=== PATIENT | male | born 1955 | race Caucasian/White ===

== ENCOUNTER 2018-11-20 11:26 | Inpatient (IN) | payer BC ==
[2018-11-20] MEDS ORDERED: Sodium Chloride 0.9% 10 ML Syringe FLUSH PRN ×2 (11:32→15:43)
[2018-11-20] MEDS ORDERED: Diltiazem 25 MG/5 ML SDV IVPUSH ONE (11:43)
[2018-11-20] MEDS ORDERED: Sodium Chloride 0.9% 1,000 ML IV SCH (11:45)
[2018-11-20] MEDS ORDERED: Diltiazem 125 MG in Sodium Chloride 0.9% 100 ML IV SCH (11:45)
--- NOTE | 2018-11-20 12:08 | EDM.PDOC ---
ED HPI GENERAL MEDICAL PROBLEM - General Chief Complaint: Cardiovascular Problem Stated Complaint: A FIB Time Seen by Provider: 11/20/18 11:30 Source of Information: Reports: Patient History Limitations: Reports: No Limitations - History of Present Illness INITIAL COMMENTS - FREE TEXT/NARRATIVE: Alert pleasant 63-year-old gentleman presented to the clinic earlier today fasting for medical evaluation. During the evaluation at clinic he was found to be in A. fib with RVR heart rate 120s to 180s. Blood pressure was 84/52. Patient was complaining of headache, lightheadedness and significant shortness of breath which was worse with activities. Patient was sent over to the clinic due to HR and Blood Pressure concerns. Patient's symptoms started on Friday but he continued work 2 days this week with some difficulty. 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 Patient reports he is on lisinopril, spironolactone, Coreg and digoxin for blood pressure, previous myocardial infarction and heart rate control. Patient had a myocardial infarction in 2008 had a defibrillator placed in 2009. Patient does not eat this morning due to fasting for laboratory studies today. Patient states symptoms do not feel like his previous heart attack. Patient has history A. fib once before his defibrillator thought it was ventricular tachycardia and he was shocked out of the A. fib rhythm. Patient has not been evaluated at any clinic or ER due to A. fib in the past. Patient states he does feel shortness of breath which is worse with activities, increased heart rate, generally lightheaded without spinning or dizziness, he denies fall. He does have a mild headache, he denies any pain or burning with urination, he denies any diarrhea or constipation. He had been in a normal state of health last weekend. Patient admits to drinking 1 Lite of Vodka daily for a number of years. Onset: Gradual - Related Data Allergies Allergy/AdvReac Type Severity Reaction Status Date / Time No Known Allergies Allergy Verified 11/20/18 12:09 Home Meds: Home Meds Aspirin [Halfprin] 81 mg PO DAILY 11/20/18 [History] Carvedilol [Coreg] 25 mg PO DAILY 11/20/18 [History] Digoxin 125 mcg PO DAILY 11/20/18 [History] Eszopiclone [Lunesta] 3 mg PO DAILY 11/20/18 [History] Glimepiride 4 mg PO DAILY 11/20/18 [History] Lisinopril 10 mg PO DAILY 11/20/18 [History] Multivitamin with Minerals [Multiple Vitamin] 1 tab PO DAILY 11/20/18 [History] Pravastatin Sodium 10 mg PO DAILY 11/20/18 [History] Spironolactone [Aldactone] 25 mg PO DAILY 11/20/18 [History] Past Medical History Cardiovascular History: Reports: Automatic Implantable Cardioverter Defibrillators, Cardiomyopathy, High Cholesterol, Hypertension, IA, Other (See Below) Other Cardiovascular History: Endocrine/Metabolic History: Reports: Diabetes, Type II Social & Family History - Tobacco Use Smoking Status *Q: Former Smoker Used Tobacco, but Quit: Yes Month/Year Tobacco Last Used: 1987 - Caffeine Use Caffeine Use: Reports: Coffee - Alcohol Use Days Per Week of Alcohol Use: 7 Number of Drinks Per Day: 1 Total Drinks Per Week: 7 - Recreational Drug Use Recreational Drug Use: No ED ROS GENERAL - Review of Systems Review Of Systems: See Below Constitutional: Reports: Malaise, Weakness, Fatigue, Diaphoresis, Decreased Appetite. Denies: Fever, Chills, Weight Gain HEENT: Reports: No Symptoms. Denies: Ear Pain, Hearing Loss, Throat Pain, Throat Swelling Respiratory: Reports: Shortness of Breath, Wheezing, Pleuritic Chest Pain. Denies: Cough, Hemoptysis Cardiovascular: Reports: Blood Pressure Problem, Dyspnea on Exertion, Lightheadedness, Palpitations. Denies: Chest Pain, Edema, Syncope Endocrine: Reports: Fatigue GI/Abdominal: Reports: Decreased Appetite, Nausea. Denies: Abdominal Pain, Black Stool, Bloody Stool, Vomiting : Denies: Dysuria, Flank Pain, Frequency, Hematuria Musculoskeletal: Reports: No Symptoms Skin: Reports: No Symptoms Neurological: Reports: No Symptoms Psychiatric: Reports: No Symptoms (additional), Anxiety (drinks alcohol daily ) Hematologic/Lymphatic: Reports: No Symptoms Immunologic: Reports: No Symptoms ED EXAM, GENERAL - Physical Exam Exam: See Below Exam Limited By: No Limitations General Appearance: WD/WN, Anxious, Mild Distress Eye Exam: Bilateral Eye: EOMI, PERRL Ears: Normal External Exam, Normal Canal, Hearing Grossly Normal, Normal TMs Ear Exam: Bilateral Ear: Auricle Normal, Canal Normal, TM normal Nose: Normal Inspection, Normal Mucosa, No Blood Throat/Mouth: Normal Inspection, Normal Lips, Normal Teeth, Normal Gums, Normal Oropharynx, Normal Voice, No Airway Compromise Head: Normocephalic Neck: Normal Inspection, Supple, Non-Tender, Full Range of Motion Respiratory/Chest: Lungs Clear, Normal Breath Sounds, No Accessory Muscle Use, Chest Non-Tender. No: Crackles, Rales, Rhonchi, Wheezing, Stridor Cardiovascular: Normal Peripheral Pulses, No Edema, No Murmur, Irregularly Irregular GI/Abdominal: Normal Bowel Sounds, Soft, Non-Tender, No Organomegaly, No Distention, No Abnormal Bruit, No Mass (Male) Exam: Deferred Rectal (Males) Exam: Deferred Back Exam: Normal Inspection, Full Range of Motion, NT Extremities: Normal Inspection, Normal Range of Motion, Non-Tender, No Pedal Edema, Normal Capillary Refill. No: Pedal Edema Neurological: Alert, Oriented, CN II-XII Intact, Normal Cognition, Normal Gait, Normal Reflexes, No Motor/Sensory Deficits Psychiatric: Normal Affect, Normal Mood, Anxious Skin Exam: Warm, Dry, Intact, Normal Color, No Rash Lymphatic: No Adenopathy EKG INTERPRETATION EKG Date: 11/20/18 Time: 10:10 (Copy from Clinic) Rhythm: A-Fib Rate (Beats/Min): 146 P-Wave: Variable QRS: RBBB ST-T: Other QT: Prolonged Comparison: NA - No Prior EKG Course - Vital Signs Text/Narrative:: Initial VS in clinic HR 146 and BP 84/52. Patient is alert and does not appera in acute distress, headache, lightheaded and Shortness of Braeth worse with exertion noted. Medication list reviewed. Patient is on Digoxin for reat control per patient. No metoprolol or Cardizem. IV establish, lab studies, Cardizem bolus 20mg and Cardizem drip initial HR improved to 90s then 70s with persistent A fib. Patient admits to drinking 1 liter of Vodka per day. Alcohol blood level and Ativan ordered fo prevention of withdrawal symptoms. I spoke with Hospitalist regarding admission for Cardiac Echo, medication rate control vs cardioversion. Anticoagulant may need to be initiated and discuss daily alcohol use. Last Recorded V/S: Last Vital Signs Temp 35.8 C 11/20/18 11:39 Pulse 79 11/20/18 14:18 Resp 16 11/20/18 14:18 BP 132/84 11/20/18 13:26 Pulse Ox 97 11/20/18 14:18 - Orders/Labs/Meds Orders: Active Orders 24 hr Category Date Time Status Cardiac Monitoring [RC] .As Directed Care 11/20/18 11:33 Active Peripheral IV Care [RC] . DIRECTED Care 11/20/18 11:33 Active Diltiazem 125 mg Med 11/20/18 11:45 Active Sodium Chloride 0.9% [Normal Saline] 100 ml IV TITRATE Sodium Chloride 0.9% [Normal Saline] 1,000 ml Med 11/20/18 11:45 Active IV ASDIRECTED Sodium Chloride 0.9% [Saline Flush] Med 11/20/18 11:32 Active 10 ml FLUSH ASDIRECTED PRN Peripheral IV Insertion Adult [OM.PC] Urgent Oth 11/20/18 11:33 Ordered Medication Orders Diltiazem HCl 125 mg/ Sodium (Chloride) 125 mls @ 5 mls/hr IV TITRATE SAM; Protocol Last Admin: 11/20/18 12:20 Dose: 5 mg/hr, 5 mls/hr Sodium Chloride (Normal Saline) 1,000 mls @ 500 mls/hr IV ASDIRECTED SAM Last Admin: 11/20/18 11:55 Dose: 500 mls/hr Sodium Chloride (Saline Flush) 10 ml FLUSH ASDIRECTED PRN PRN Reason: Keep Vein Open Last Admin: 11/20/18 12:49 Dose: 10 ml Labs: Laboratory Tests 11/20/18 11/20/18 11/20/18 Range/Units 11:40 11:40 11:40 WBC 9.3 (4.5-11.0) K/uL RBC 4.42 (4.30-5.90) M/uL Hgb 14.9 (12.0-15.0) g/dL Hct 43.4 (40.0-54.0) % MCV 98 (80-98) fL MCH 34 H (27-31) pg MCHC 34 (32-36) % Plt Count 137 L (150-400) K/uL Neut % (Auto) 68 H (36-66) % Lymph % (Auto) 20 L (24-44) % [place] % (Auto) 9 H (2-6) % Eos % (Auto) 3 (2-4) % Baso % (Auto) 1 (0-1) % PT (9.5-12.0) sec INR (0.80-1.20) Sodium 139 L (140-148) mmol/L Potassium 6.0 H (3.6-5.2) mmol/L Chloride 103 (100-108) mmol/L Carbon Dioxide 28 (21-32) mmol/L Anion Gap 14.0 (5.0-14.0) mmol/L BUN 29 H (7-18) mg/dL Creatinine 1.4 H (0.8-1.3) mg/dL Est Cr Clr Drug Dosing 59.28 mL/min Estimated GFR (MDRD) 51 L (>60) Glucose 180 H (74-106) mg/dL Calcium 9.3 (8.5-10.1) mg/dL Total Bilirubin 0.9 (0.2-1.0) mg/dL AST 26 (15-37) U/L ALT 34 (12-78) U/L Alkaline Phosphatase 61 (46-116) U/L Troponin I 0.049 (0.000-0.056) ng/mL NT-Pro-B Natriuret Pep 5938 H (5-125) pg/mL Total Protein 7.0 (6.4-8.2) g/dL Albumin 3.6 (3.4-5.0) g/dL Globulin 3.4 (2.3-3.5) g/dL Albumin/Globulin Ratio 1.1 L (1.2-2.2) Digoxin (0.90-2.00) ng/mL Ethyl Alcohol mg/dL 11/20/18 11/20/18 11/20/18 Range/Units 11:40 11:40 12:34 WBC (4.5-11.0) K/uL RBC (4.30-5.90) M/uL Hgb (12.0-15.0) g/dL Hct (40.0-54.0) % MCV (80-98) fL MCH (27-31) pg MCHC (32-36) % Plt Count (150-400) K/uL Neut % (Auto) (36-66) % Lymph % (Auto) (24-44) % [place] % (Auto) (2-6) % Eos % (Auto) (2-4) % Baso % (Auto) (0-1) % PT 11.0 (9.5-12.0) sec INR 1.02 (0.80-1.20) Sodium (140-148) mmol/L Potassium (3.6-5.2) mmol/L Chloride (100-108) mmol/L Carbon Dioxide (21-32) mmol/L Anion Gap (5.0-14.0) mmol/L BUN (7-18) mg/dL Creatinine (0.8-1.3) mg/dL Est Cr Clr Drug Dosing mL/min Estimated GFR (MDRD) (>60) Glucose (74-106) mg/dL Calcium (8.5-10.1) mg/dL Total Bilirubin (0.2-1.0) mg/dL AST (15-37) U/L ALT (12-78) U/L Alkaline Phosphatase (46-116) U/L Troponin I (0.000-0.056) ng/mL NT-Pro-B Natriuret Pep (5-125) pg/mL Total Protein (6.4-8.2) g/dL Albumin (3.4-5.0) g/dL Globulin (2.3-3.5) g/dL Albumin/Globulin Ratio (1.2-2.2) Digoxin 0.70 L (0.90-2.00) ng/mL Ethyl Alcohol < 3 mg/dL Meds: Medications Generic Name Dose Route Start Last Admin Trade Name Freq PRN Reason Stop Dose Admin Diltiazem HCl 125 mg/ Sodium 125 mls @ 5 mls/hr 11/20/18 11:45 11/20/18 12:20 Chloride IV 5 mg/hr TITRATE SAM 5 mls/hr Administration Protocol 5 MG/HR Sodium Chloride 1,000 mls @ 500 mls/hr 11/20/18 11:45 11/20/18 11:55 Normal Saline IV 500 mls/hr ASDIRECTED SAM Administration Sodium Chloride 10 ml 11/20/18 11:32 11/20/18 12:49 Saline Flush FLUSH 10 ml ASDIRECTED PRN Administration Keep Vein Open Discontinued Medications Generic Name Dose Route Start Last Admin Trade Name Freq PRN Reason Stop Dose Admin Diltiazem HCl 20 mg 11/20/18 11:43 07/12/19 11:56 Diltiazem IVPUSH 11/20/18 11:44 20 mg ONETIME ONE Administration - Re-Assessments/Exams Free Text/Narrative Re-Assessment/Exam: Initial VS in clinic HR 146 and BP 84/52. Patient is alert and does not appera in acute distress, headache, lightheaded and Shortness of Braeth worse with exertion noted. Medication list reviewed. Patient is on Digoxin for reat control per patient. No metoprolol or Cardizem. IV establish, lab studies, Cardizem bolus 20mg and Cardizem drip initial HR improved to 90s then 70s with persistent A fib. Patient admits to drinking 1 liter of Vodka per day. Alcohol blood level and Ativan ordered fo prevention of withdrawal symptoms. I spoke with Hospitalist regarding admission for Cardiac Echo, medication rate control vs cardioversion. Anticoagulant may need to be initiated and discuss daily alcohol use. 11/20/18 12:25 Free Text/Narrative Re-Assessment/Exam: Critical care time 45 minutes while patient was unstable and received Cardizem bolus and drip to decreased HR and Improve BP. 11/20/18 12:45 Departure - Departure Time of Disposition: 14:26 Disposition: Admitted As Inpatient 66 Condition: Fair Clinical Impression: Atrial fibrillation with RVR, HTN (hypertension), Hypotension, Alcohol dependence, daily use Referrals: PCP,None [Primary Care Provider] - Forms: ED Department Discharge - Problem List & Annotations (1) Atrial fibrillation with RVR SNOMED Code(s): 273864065831040 Code(s): I48.91 - UNSPECIFIED ATRIAL FIBRILLATION Status: Acute Current Visit: Yes Annotation/Comment:: Hypotension with initial HR 146, BP improved with rate control (2) HTN (hypertension) SNOMED Code(s): 69518106 Code(s): I10 - ESSENTIAL (PRIMARY) HYPERTENSION Status: Acute Current Visit: Yes Qualifiers: Hypertension type: essential hypertension Qualified Code(s): I10 - Essential (primary) hypertension (3) Hypotension SNOMED Code(s): 00605424 Code(s): I95.9 - HYPOTENSION, UNSPECIFIED Status: Acute Current Visit: Yes (4) Elevated cholesterol SNOMED Code(s): 68266086 Code(s): E78.00 - PURE HYPERCHOLESTEROLEMIA, UNSPECIFIED Status: Acute Priority: Medium Current Visit: Yes (5) Diabetes SNOMED Code(s): 32115445 Code(s): E11.9 - TYPE 2 DIABETES MELLITUS WITHOUT COMPLICATIONS Status: Acute Priority: Medium Current Visit: Yes Qualifiers: Diabetes mellitus type: type 2 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 DIRECTED Peripheral IV Insertion Adult [OM.PC] Urgent 11/20/18 11:45 Diltiazem 125 mg Sodium Chloride 0.9% [Normal Saline] 100 ml IV TITRATE Sodium Chloride 0.9% [Normal Saline] 1,000 ml IV ASDIRECTED - Assessment/Plan Last 24 Hours: My Active Orders 11/20/18 11:32 Sodium Chloride 0.9% [Saline Flush] 10 ml FLUSH ASDIRECTED PRN 11/20/18 11:33 Cardiac Monitoring [RC] .As Directed Peripheral IV Care [RC] . DIRECTED Peripheral IV Insertion Adult [OM.PC] Urgent 11/20/18 11:45 Diltiazem 125 mg Sodium Chloride 0.9% [Normal Saline] 100 ml IV TITRATE Sodium Chloride 0.9% [Normal Saline] 1,000 ml IV ASDIRECTED
--- NOTE | 2018-11-20 14:41 | PCM.HP ---
H&P History of Present Illness - General Date of Service: 11/20/18 Admit Problem/Dx: Admission Diagnosis/Problem Admission Diagnosis/Problem Atrial fibrillation Source of Information: Patient, Family, Provider History Limitations: Reports: No Limitations - History of Present Illness Initial Comments - Free Text/Narative: Mr. Mccann is a 63-year-old gentleman who was admitted through the emergency department with weakness and lightheadedness secondary to atrial fibrillation with rapid ventricular response. Symptoms began approximately 4 days ago and during that period of time he is noted persistent weakness and lightheadedness. He is had one previous documented episode of atrial fibrillation which was transient and converted spontaneously. He does have a known history of congestive heart failure as well as coronary artery disease and is status post placement of a defibrillator. He denies any current symptoms of chest pain or pressure or significant shortness of breath. Evaluation in the emergency department has included cardiac monitoring as well as an EKG that showed evidence of atrial fibrillation with rapid ventricular response. He was given a bolus dose of diltiazem and started on a continuous infusion of diltiazem with good result and heart rate currently in the 70s, does remain in atrial fibrillation. - Related Data Allergies/Adverse Reactions: Allergies Allergy/AdvReac Type Severity Reaction Status Date / Time No Known Allergies Allergy Verified 11/20/18 12:09 Home Medications: Home Meds Aspirin [Halfprin] 81 mg PO DAILY 11/20/18 [History] Carvedilol [Coreg] 25 mg PO DAILY 11/20/18 [History] Digoxin 125 mcg PO DAILY 11/20/18 [History] Eszopiclone [Lunesta] 3 mg PO DAILY 11/20/18 [History] Glimepiride 4 mg PO DAILY 11/20/18 [History] Lisinopril 10 mg PO DAILY 11/20/18 [History] Multivitamin with Minerals [Multiple Vitamin] 1 tab PO DAILY 11/20/18 [History] Pravastatin Sodium 10 mg PO DAILY 11/20/18 [History] Spironolactone [Aldactone] 25 mg PO DAILY 11/20/18 [History] Past Medical History HEENT History: Reports: Impaired Vision Cardiovascular History: Reports: Automatic Implantable Cardioverter Defibrillators, Cardiomyopathy, High Cholesterol, Hypertension, GA, Other (See Below) Other Cardiovascular History: Musculoskeletal History: Reports: Arthritis, Gout Neurological History: Reports: Concussion, TIA Psychiatric History: Reports: Addiction, Anxiety Endocrine/Metabolic History: Reports: Diabetes, Type II Hematologic History: Reports: Blood Transfusion(s) - Past Surgical History Head Surgeries/Procedures: Reports: None HEENT Surgical History: Reports: Laser Surgery Cardiovascular Surgical History: Reports: Coronary Artery Bypass, Coronary Artery Stent Endocrine Surgical History: Reports: None Neurological Surgical History: Reports: None Musculoskeletal Surgical History: Reports: Other (See Below) Other Musculoskeletal Surgeries/Procedures:: finger Dermatological Surgical History: Reports: None Social & Family History - Tobacco Use Smoking Status *Q: Former Smoker Used Tobacco, but Quit: Yes Month/Year Tobacco Last Used: 1987 - Caffeine Use Caffeine Use: Reports: Coffee - Alcohol Use Days Per Week of Alcohol Use: 7 Number of Drinks Per Day: 1 Total Drinks Per Week: 7 - Recreational Drug Use Recreational Drug Use: No H&P Review of Systems - Review of Systems: Review Of Systems: See Below General: Reports: Malaise, Weakness HEENT: Reports: No Symptoms Pulmonary: Reports: No Symptoms Cardiovascular: Reports: Lightheadedness. Denies: Chest Pain, Palpitations, Dyspnea on Exertion, Orthopnea, PND, Edema Gastrointestinal: Reports: No Symptoms Genitourinary: Reports: No Symptoms Musculoskeletal: Reports: No Symptoms Skin: Reports: No Symptoms Psychiatric: Reports: No Symptoms Neurological: Reports: No Symptoms Hematologic/Lymphatic: Reports: No Symptoms Immunologic: Reports: No Symptoms Exam - Exam Exam: See Below - Vital Signs Vital Signs: Last Vital Signs Temp 96.4 F 11/20/18 11:39 Pulse 79 11/20/18 14:18 Resp 16 11/20/18 14:18 BP 132/84 11/20/18 13:26 Pulse Ox 97 11/20/18 14:18 Weight: 251 lb 5.231 oz - Exam General: Alert, Oriented, Cooperative, Mild Distress HEENT: Conjunctiva Clear, Hearing Intact, Mucosa Moist & [place], Normal Nasal Septum, Posterior Pharynx Clear, Pupils Equal Neck: Supple, Trachea Midline, +2 Carotid Pulse wo Bruit Lungs: Clear to Auscultation, Normal Respiratory Effort Cardiovascular: Regular Rate, Normal S1, Normal S2, Irregular Rhythm, Systolic Murmur. No: Diastolic Murmur GI/Abdominal Exam: Soft, Non-Tender, No Organomegaly, No Distention Back Exam: Normal Inspection, Full Range of Motion Extremities: Non-Tender, No Pedal Edema Skin: Warm, Dry, Intact Neurological: Cranial Nerves Intact, Strength Equal Bilateral, Normal Speech, Normal Tone, Sensation Intact. No: Focal Deficit Neuro Extensive - Mental Status: Alert, Oriented x3, Normal Mood/Affect, Normal Cognition, Memory Intact - Patient Data Lab Results Last 24 hrs: Laboratory Results - last 24 hr 11/20/18 11/20/18 11/20/18 Range/Units 11:40 11:40 11:40 WBC 9.3 (4.5-11.0) K/uL RBC 4.42 (4.30-5.90) M/uL Hgb 14.9 (12.0-15.0) g/dL Hct 43.4 (40.0-54.0) % MCV 98 (80-98) fL MCH 34 H (27-31) pg MCHC 34 (32-36) % Plt Count 137 L (150-400) K/uL Neut % (Auto) 68 H (36-66) % Lymph % (Auto) 20 L (24-44) % [place] % (Auto) 9 H (2-6) % Eos % (Auto) 3 (2-4) % Baso % (Auto) 1 (0-1) % PT (9.5-12.0) sec INR (0.80-1.20) Sodium 139 L (140-148) mmol/L Potassium 6.0 H (3.6-5.2) mmol/L Chloride 103 (100-108) mmol/L Carbon Dioxide 28 (21-32) mmol/L Anion Gap 14.0 (5.0-14.0) mmol/L BUN 29 H (7-18) mg/dL Creatinine 1.4 H (0.8-1.3) mg/dL Est Cr Clr Drug Dosing 59.28 mL/min Estimated GFR (MDRD) 51 L (>60) Glucose 180 H (74-106) mg/dL Calcium 9.3 (8.5-10.1) mg/dL Total Bilirubin 0.9 (0.2-1.0) mg/dL AST 26 (15-37) U/L ALT 34 (12-78) U/L Alkaline Phosphatase 61 (46-116) U/L Troponin I 0.049 (0.000-0.056) ng/mL NT-Pro-B Natriuret Pep 5938 H (5-125) pg/mL Total Protein 7.0 (6.4-8.2) g/dL Albumin 3.6 (3.4-5.0) g/dL Globulin 3.4 (2.3-3.5) g/dL Albumin/Globulin Ratio 1.1 L (1.2-2.2) Digoxin (0.90-2.00) ng/mL Ethyl Alcohol mg/dL 11/20/18 11/20/18 11/20/18 Range/Units 11:40 11:40 12:34 WBC (4.5-11.0) K/uL RBC (4.30-5.90) M/uL Hgb (12.0-15.0) g/dL Hct (40.0-54.0) % MCV (80-98) fL MCH (27-31) pg MCHC (32-36) % Plt Count (150-400) K/uL Neut % (Auto) (36-66) % Lymph % (Auto) (24-44) % [place] % (Auto) (2-6) % Eos % (Auto) (2-4) % Baso % (Auto) (0-1) % PT 11.0 (9.5-12.0) sec INR 1.02 (0.80-1.20) Sodium (140-148) mmol/L Potassium (3.6-5.2) mmol/L Chloride (100-108) mmol/L Carbon Dioxide (21-32) mmol/L Anion Gap (5.0-14.0) mmol/L BUN (7-18) mg/dL Creatinine (0.8-1.3) mg/dL Est Cr Clr Drug Dosing mL/min Estimated GFR (MDRD) (>60) Glucose (74-106) mg/dL Calcium (8.5-10.1) mg/dL Total Bilirubin (0.2-1.0) mg/dL AST (15-37) U/L ALT (12-78) U/L Alkaline Phosphatase (46-116) U/L Troponin I (0.000-0.056) ng/mL NT-Pro-B Natriuret Pep (5-125) pg/mL Total Protein (6.4-8.2) g/dL Albumin (3.4-5.0) g/dL Globulin (2.3-3.5) g/dL Albumin/Globulin Ratio (1.2-2.2) Digoxin 0.70 L (0.90-2.00) ng/mL Ethyl Alcohol < 3 mg/dL Result Diagrams: 11/20/18 11:40 11/20/18 11:40 *Q Meaningful Use (ADM) - VTE Risk Assess *Q Each Risk Factor Represents 1 Point: Obesity ( BMI > 25 kg/m2), Congestive heart failure (CHF) Total Score 1 Point Risk Factors: 2 Each Risk Factor Represents 2 Points: Age 60 - 74 Years Total Score 2 Point Risk Factors: 2 Each Risk Factor Represents 3 Points: None Total Score 3 Point Risk Factors: 0 Each Risk Factor Represents 5 Points: None Total Score 5 Point Risk Factors: 0 Venous Thromboembolism Risk Factor Score *Q: 4 Problem List Initiated/Reviewed/Updated: Yes Orders Last 24hrs: Active Orders 24 hr Category Date Time Status Patient Status Manage Transfer [TRANSFER] Routine ADT 11/20/18 14:20 Ordered Cardiac Monitoring [RC] .As Directed Care 11/20/18 11:33 Active Peripheral IV Care [RC] . DIRECTED Care 11/20/18 11:33 Active Diltiazem 125 mg Med 11/20/18 11:45 Active Sodium Chloride 0.9% [Normal Saline] 100 ml IV TITRATE Sodium Chloride 0.9% [Normal Saline] 1,000 ml Med 11/20/18 11:45 Active IV ASDIRECTED Sodium Chloride 0.9% [Saline Flush] Med 11/20/18 11:32 Active 10 ml FLUSH ASDIRECTED PRN Peripheral IV Insertion Adult [OM.PC] Urgent Oth 11/20/18 11:33 Ordered Resuscitation Status Routine Resus Stat 11/20/18 14:25 Ordered Medication Orders Diltiazem HCl 125 mg/ Sodium (Chloride) 125 mls @ 5 mls/hr IV TITRATE SAM; Protocol Last Admin: 11/20/18 12:20 Dose: 5 mg/hr, 5 mls/hr Sodium Chloride (Normal Saline) 1,000 mls @ 500 mls/hr IV ASDIRECTED SAM Last Admin: 11/20/18 11:55 Dose: 500 mls/hr Sodium Chloride (Saline Flush) 10 ml FLUSH ASDIRECTED PRN PRN Reason: Keep Vein Open Last Admin: 11/20/18 12:49 Dose: 10 ml Assessment/Plan Comment:: ASSESSMENT AND PLAN ATRIAL FIBRILLATION WITH RAPID VENTRICULAR RESPONSE-second documented episode which is been present now for a period of 4 days. Previous episode resolved spontaneously in less than 24 hours. He has experienced symptoms of weakness and lightheadedness. IV diltiazem, bolus dose and continuous infusion, initiated in the emergency department with good result and control of ventricular response. He is not a candidate for cardioversion because of duration of atrial fibrillation of over 48 hours. Calculated [id number] score of 4. -Continue IV diltiazem infusion -1 to transition to oral diltiazem -Initiate anticoagulation with Eliquis 5 mg by mouth twice daily -Outpatient follow-up with cardiology HYPERKALEMIA-likely secondary to CARLOS inhibitor therapy and spironolactone -Hold CARLOS inhibitor and Spironolactone -Kayexalate 30 mg by mouth now -Recheck potassium level later tonight and in a.m. ALCOHOLISM-he reports daily use of alcohol 16 ounces per day. He refuses gabapentin or alcohol dosing while in the hospital. -Monitor closely for alcohol withdrawal CONGESTIVE HEART FAILURE-well compensated on current therapy -Continue current outpatient medications CORONARY ARTERY DISEASE-currently asymptomatic, denies any symptoms of chest pain. -Continue outpatient medications TYPE 2 DIABETES MELLITUS -Continue outpatient oral hypoglycemic therapy MAINTENANCE ISSUES -DVT prophylaxis; current therapy with Eliquis should provide adequate DVT prophylaxis -GI prophylaxis; not indicated -Camara catheter; not indicated -Nutrition; 2 g sodium diet -Nicotine dependence; not required CODE STATUS-FULL CODE ADMISSION STATUS-patient will be admitted to inpatient status, expect at least a 2 night hospital stay for evaluation and management of problems as outlined above. At the time of this admission I do not reasonably expected evaluation and management of this problem will require more than a 96 hour hospital stay. DISPOSITION-anticipate discharge to home after the hospital stay. PRIMARY CARE PROVIDER-
[2018-11-20] MEDS ORDERED: Acetaminophen 325 MG Tab PO PRN (15:43)
[2018-11-20] MEDS ORDERED: Ondansetron 4 MG/2 ML SDV IV PRN (15:43)
[2018-11-20] MEDS ORDERED: Temazepam 15 MG Cap PO PRN (15:43)
[2018-11-20] MEDS ORDERED: 50% Dextrose in Water 50 ML Syringe IV PRN (15:43)
[2018-11-20] MEDS ORDERED: Glucose Gel 15 GM in 37.5 GM Tube PO PRN (15:43)
[2018-11-20] MEDS ORDERED: Albuterol 0.083% 2.5 MG/3 ML Neb Soln NEB PRN (15:43)
[2018-11-20] MEDS ORDERED: Polyethylene Glycol 3350 Powder 17 GM Packet PO PRN (15:43)
[2018-11-20] MEDS ORDERED: Sodium Polystyrene Sulfonate 15 GM/60 ML Susp 60 ML Bot PO ONE (16:30)
[2018-11-20] MEDS: Apixaban 5 MG Tab PO SCH ×2 (17:01→21:34)
[2018-11-20] MEDS: Diltiazem IR 30 MG Tab PO SCH ×2 (18:41→21:34)
[2018-11-20] MEDS ORDERED: Zolpidem 5 MG Tab PO SCH (21:00)
[2018-11-20] MEDS ORDERED: ESZOPICLONE 3 MG PO ONE (21:29)
[2018-11-21] MEDS: Diltiazem IR 30 MG Tab PO SCH ×7 (04:18→21:12)
[2018-11-21] MEDS: Glimepiride 2 MG Tab PO SCH (08:15)
[2018-11-21] MEDS: Aspirin 81 MG Tab.EC PO SCH (08:16)
[2018-11-21] MEDS: Apixaban 5 MG Tab PO SCH ×2 (08:17→21:11)
[2018-11-21] MEDS: Pravastatin 20 MG Tab PO SCH (08:17)
[2018-11-21] MEDS ORDERED: Non-Formulary Medication 1 Each (Glimepiride [Glimepiride] 4 MG) PO SCH (09:00)
[2018-11-21] MEDS ORDERED: Carvedilol 25 MG Tab PO SCH (09:00)
[2018-11-21] MEDS ORDERED: Non-Formulary Medication 1 Each (Pravastatin Sodium [Pravastatin Sodium] 10 MG) PO SCH (09:00)
--- NOTE | 2018-11-21 09:43 | PCM.PN ---
- General Info Date of Service: 11/21/18 Subjective Update: Mr. Mccann has been stable until this morning, now heart rate is increased. He was transitioned to oral diltiazem last night. He is received in a.m. labs, waiting to see effect on heart rate. He is otherwise feeling improved, denies lightheadedness, shortness of breath, or chest pain. Functional Status: Reports: Tolerating Diet, Urinating - Review of Systems General: Reports: No Symptoms Pulmonary: Reports: No Symptoms Cardiovascular: Reports: Palpitations. Denies: Chest Pain, Dyspnea on Exertion , Orthopnea, PND, Edema, Lightheadedness Gastrointestinal: Reports: No Symptoms - Patient Data Vitals - Most Recent: Last Vital Signs Temp 98.5 F 11/21/18 08:00 Pulse 145 H 11/21/18 09:09 Resp 12 11/21/18 08:00 BP 140/83 11/21/18 08:16 Pulse Ox 97 11/21/18 08:00 Weight - Most Recent: 251 lb 5.231 oz I&O - Last 24 Hours: Intake & Output 11/20/18 11/21/18 11/21/18 22:59 06:59 14:59 Intake Total 1400 Output Total 450 100 Balance -450 1300 Lab Results Last 24 Hours: Laboratory Results - last 24 hr 11/20/18 11/20/18 11/20/18 Range/Units 11:40 11:40 11:40 WBC 9.3 (4.5-11.0) K/uL RBC 4.42 (4.30-5.90) M/uL Hgb 14.9 (12.0-15.0) g/dL Hct 43.4 (40.0-54.0) % MCV 98 (80-98) fL MCH 34 H (27-31) pg MCHC 34 (32-36) % Plt Count 137 L (150-400) K/uL Neut % (Auto) 68 H (36-66) % Lymph % (Auto) 20 L (24-44) % Randall % (Auto) 9 H (2-6) % Eos % (Auto) 3 (2-4) % Baso % (Auto) 1 (0-1) % PT (9.5-12.0) sec INR (0.80-1.20) Sodium 139 L (140-148) mmol/L Potassium 6.0 H (3.6-5.2) mmol/L Chloride 103 (100-108) mmol/L Carbon Dioxide 28 (21-32) mmol/L Anion Gap 14.0 (5.0-14.0) mmol/L BUN 29 H (7-18) mg/dL Creatinine 1.4 H (0.8-1.3) mg/dL Est Cr Clr Drug Dosing 59.28 mL/min Estimated GFR (MDRD) 51 L (>60) Glucose 180 H (74-106) mg/dL Calcium 9.3 (8.5-10.1) mg/dL Total Bilirubin 0.9 (0.2-1.0) mg/dL AST 26 (15-37) U/L ALT 34 (12-78) U/L Alkaline Phosphatase 61 (46-116) U/L Troponin I 0.049 (0.000-0.056) ng/mL NT-Pro-B Natriuret Pep 5938 H (5-125) pg/mL Total Protein 7.0 (6.4-8.2) g/dL Albumin 3.6 (3.4-5.0) g/dL Globulin 3.4 (2.3-3.5) g/dL Albumin/Globulin Ratio 1.1 L (1.2-2.2) TSH, Ultra Sensitive (0.358-3.740) uIU/mL Digoxin (0.90-2.00) ng/mL Ethyl Alcohol mg/dL 11/20/18 11/20/18 11/20/18 Range/Units 11:40 11:40 12:34 WBC (4.5-11.0) K/uL RBC (4.30-5.90) M/uL Hgb (12.0-15.0) g/dL Hct (40.0-54.0) % MCV (80-98) fL MCH (27-31) pg MCHC (32-36) % Plt Count (150-400) K/uL Neut % (Auto) (36-66) % Lymph % (Auto) (24-44) % Randall % (Auto) (2-6) % Eos % (Auto) (2-4) % Baso % (Auto) (0-1) % PT 11.0 (9.5-12.0) sec INR 1.02 (0.80-1.20) Sodium (140-148) mmol/L Potassium (3.6-5.2) mmol/L Chloride (100-108) mmol/L Carbon Dioxide (21-32) mmol/L Anion Gap (5.0-14.0) mmol/L BUN (7-18) mg/dL Creatinine (0.8-1.3) mg/dL Est Cr Clr Drug Dosing mL/min Estimated GFR (MDRD) (>60) Glucose (74-106) mg/dL Calcium (8.5-10.1) mg/dL Total Bilirubin (0.2-1.0) mg/dL AST (15-37) U/L ALT (12-78) U/L Alkaline Phosphatase (46-116) U/L Troponin I (0.000-0.056) ng/mL NT-Pro-B Natriuret Pep (5-125) pg/mL Total Protein (6.4-8.2) g/dL Albumin (3.4-5.0) g/dL Globulin (2.3-3.5) g/dL Albumin/Globulin Ratio (1.2-2.2) TSH, Ultra Sensitive (0.358-3.740) uIU/mL Digoxin 0.70 L (0.90-2.00) ng/mL Ethyl Alcohol < 3 mg/dL 11/20/18 11/21/18 11/21/18 Range/Units 21:00 05:45 05:45 WBC (4.5-11.0) K/uL RBC (4.30-5.90) M/uL Hgb (12.0-15.0) g/dL Hct (40.0-54.0) % MCV (80-98) fL MCH (27-31) pg MCHC (32-36) % Plt Count (150-400) K/uL Neut % (Auto) (36-66) % Lymph % (Auto) (24-44) % Randall % (Auto) (2-6) % Eos % (Auto) (2-4) % Baso % (Auto) (0-1) % PT (9.5-12.0) sec INR (0.80-1.20) Sodium 140 (140-148) mmol/L Potassium 4.5 4.3 (3.6-5.2) mmol/L Chloride 104 (100-108) mmol/L Carbon Dioxide 30 (21-32) mmol/L Anion Gap 6.5 (5.0-14.0) mmol/L BUN 21 H (7-18) mg/dL Creatinine 1.2 (0.8-1.3) mg/dL Est Cr Clr Drug Dosing 69.25 mL/min Estimated GFR (MDRD) > 60 (>60) Glucose 152 H (74-106) mg/dL Calcium 8.7 (8.5-10.1) mg/dL Total Bilirubin (0.2-1.0) mg/dL AST (15-37) U/L ALT (12-78) U/L Alkaline Phosphatase (46-116) U/L Troponin I (0.000-0.056) ng/mL NT-Pro-B Natriuret Pep (5-125) pg/mL Total Protein (6.4-8.2) g/dL Albumin (3.4-5.0) g/dL Globulin (2.3-3.5) g/dL Albumin/Globulin Ratio (1.2-2.2) TSH, Ultra Sensitive 1.639 (0.358-3.740) uIU/mL Digoxin (0.90-2.00) ng/mL Ethyl Alcohol mg/dL Med Orders - Current: Current Medications Acetaminophen (Tylenol) 650 mg PO Q4H PRN PRN Reason: Pain (Mild 1-3)/fever Albuterol (Proventil Neb Soln) 2.5 mg NEB Q4H PRN PRN Reason: Shortness Of Breath/wheezing Apixaban (Eliquis) 5 mg PO BID [facility] Last Admin: 11/21/18 08:17 Dose: 5 mg Aspirin (Halfprin) 81 mg PO DAILY [facility] Last Admin: 11/21/18 08:16 Dose: 81 mg Carvedilol (Coreg) 25 mg PO BID [facility] Dextrose (Glutose 15) 15 gm PO ASDIRECTED PRN PRN Reason: Hypoglycemia Dextrose/Water (Dextrose 50% In Water) 50 ml IV ASDIRECTED PRN PRN Reason: Hypoglycemia Digoxin (Lanoxin) 125 mcg PO DAILY@1300 [facility] Last Admin: 11/21/18 09:09 Dose: 125 mcg Diltiazem HCl (Cardizem) 60 mg PO Q6HR [facility] Glimepiride (Amaryl) 4 mg PO DAILY [facility] Last Admin: 11/21/18 08:15 Dose: 4 mg Diltiazem HCl 125 mg/ Sodium (Chloride) 125 mls @ 5 mls/hr IV TITRATE [facility]; Protocol Last Titration: 11/20/18 23:01 Dose: 0 mg/hr, 0 mls/hr Ondansetron HCl (Zofran) 4 mg IV Q4H PRN PRN Reason: Nausea/Vomiting Polyethylene Glycol (Miralax) 17 gm PO DAILY PRN PRN Reason: Constipation Pravastatin Sodium (Pravachol) 10 mg PO DAILY [facility] Last Admin: 11/21/18 08:17 Dose: 10 mg Sodium Chloride (Saline Flush) 10 ml FLUSH ASDIRECTED PRN PRN Reason: Keep Vein Open Discontinued Medications Carvedilol (Coreg) 25 mg PO DAILY [facility] Last Admin: 11/21/18 08:16 Dose: 25 mg Diltiazem HCl (Diltiazem) 20 mg IVPUSH ONETIME ONE Stop: 11/20/18 11:44 Last Admin: 11/20/18 11:56 Dose: 20 mg Diltiazem HCl (Cardizem) 30 mg PO Q6HR [facility] Last Admin: 11/21/18 09:10 Dose: Not Given Sodium Chloride (Normal Saline) 1,000 mls @ 500 mls/hr IV ASDIRECTED [facility] Last Admin: 11/20/18 11:55 Dose: 500 mls/hr Eszopiclone 3mg Tab (Own Med) 0 each PO ONETIME ONE Stop: 11/20/18 21:30 Last Admin: 11/20/18 23:00 Dose: 1 each Sodium Chloride (Saline Flush) 10 ml FLUSH ASDIRECTED PRN PRN Reason: Keep Vein Open Last Admin: 11/20/18 12:49 Dose: 10 ml Sodium Polystyrene Sulfonate (Kayexalate) 30 gm PO ONETIME ONE Stop: 11/20/18 16:31 Last Admin: 11/20/18 17:02 Dose: 30 gm Temazepam (Restoril) 15 mg PO BEDTIME PRN PRN Reason: Insomnia Zolpidem Tartrate (Ambien) 5 mg PO BEDTIME [facility] Last Admin: 11/20/18 21:48 Dose: Not Given - Exam Quality Assessment: DVT Prophylaxis General: Alert, Oriented, Cooperative, Mild Distress Lungs: Clear to Auscultation, Normal Respiratory Effort Cardiovascular: Regular Rate, Regular Rhythm, No Murmurs GI/Abdominal Exam: Soft, Non-Tender, No Organomegaly, No Distention Extremities: Non-Tender, No Pedal Edema - Problem List Review Problem List Initiated/Reviewed/Updated: Yes - My Orders Last 24 Hours: My Active Orders 11/20/18 14:25 Resuscitation Status Routine 11/20/18 15:43 Patient Status [ADT] Routine Ambulate [RC] QID Blood Glucose Check, Bedside [RC] QIDACANDBED Communication Order [RC] STAT Diabetes Education [RC] Click to Edit Height and Weight [RC] DAILY Intake and Output [RC] QSHIFT Notify Provider Vital Signs [RC] ASDIRECTED Notify Provider [RC] PRN Oxygen Therapy [RC] PRN RT Aerosol Therapy [RC] ASDIRECTED Up ad Danae [RC] ASDIRECTED Up to Chair [RC] QID VTE/DVT Education [RC] Per Unit Routine Vital Signs [RC] Q2H Acetaminophen [Tylenol] 650 mg PO Q4H PRN Albuterol [Proventil Neb Soln] 2.5 mg NEB Q4H PRN Dextrose 50% in Water 50 ml IV ASDIRECTED PRN Dextrose [Glutose 15] 15 gm PO ASDIRECTED PRN Ondansetron [Zofran] 4 mg IV Q4H PRN Polyethylene Glycol 3350 [MiraLAX] 17 gm PO DAILY PRN Sodium Chloride 0.9% [Saline Flush] 10 ml FLUSH ASDIRECTED PRN Saline Lock Insert [OM.PC] Routine VTE Pharmacological Contraindications [AST] Per Unit Routine 11/20/18 16:00 Apixaban [Eliquis] 5 mg PO BID 11/20/18 Lunch 2 Gram Sodium Diet [DIET] 11/21/18 09:00 Aspirin [Halfprin] 81 mg PO DAILY Glimepiride [Amaryl] 4 mg PO DAILY Pravastatin [Pravachol] 10 mg PO DAILY 11/21/18 10:00 Diltiazem IR [Cardizem] 60 mg PO Q6HR 11/21/18 13:00 Digoxin [Lanoxin] 125 mcg PO DAILY@1300 11/21/18 21:00 Carvedilol [Coreg] 25 mg PO BID 11/22/18 05:00 BASIC METABOLIC PANEL,BMP [CHEM] Timed 11/22/18 07:30 GLUCOSE POC LAB TO COLLECT [POC] QIDACANDBED 11/22/18 11:30 GLUCOSE POC LAB TO COLLECT [POC] QIDACANDBED 11/22/18 16:30 GLUCOSE POC LAB TO COLLECT [POC] QIDACANDBED 11/22/18 21:00 GLUCOSE POC LAB TO COLLECT [POC] QIDACANDBED 11/23/18 07:30 GLUCOSE POC LAB TO COLLECT [POC] QIDACANDBED 11/23/18 11:30 GLUCOSE POC LAB TO COLLECT [POC] QIDACANDBED 11/23/18 16:30 GLUCOSE POC LAB TO COLLECT [POC] QIDACANDBED 11/23/18 21:00 GLUCOSE POC LAB TO COLLECT [POC] QIDACANDBED 11/24/18 07:30 GLUCOSE POC LAB TO COLLECT [POC] QIDACANDBED 11/24/18 11:30 GLUCOSE POC LAB TO COLLECT [POC] QIDACANDBED 11/24/18 16:30 GLUCOSE POC LAB TO COLLECT [POC] QIDACANDBED 11/24/18 21:00 GLUCOSE POC LAB TO COLLECT [POC] QIDACANDBED 11/25/18 07:30 GLUCOSE POC LAB TO COLLECT [POC] QIDACANDBED 11/25/18 11:30 GLUCOSE POC LAB TO COLLECT [POC] QIDACANDBED 11/25/18 16:30 GLUCOSE POC LAB TO COLLECT [POC] QIDACANDBED 11/25/18 21:00 GLUCOSE POC LAB TO COLLECT [POC] QIDACANDBED 11/26/18 07:30 GLUCOSE POC LAB TO COLLECT [POC] QIDACANDBED 11/26/18 11:30 GLUCOSE POC LAB TO COLLECT [POC] QIDACANDBED 11/26/18 16:30 GLUCOSE POC LAB TO COLLECT [POC] QIDACANDBED 11/26/18 21:00 GLUCOSE POC LAB TO COLLECT [POC] QIDACANDBED 11/27/18 07:30 GLUCOSE POC LAB TO COLLECT [POC] QIDACANDBED 11/27/18 11:30 GLUCOSE POC LAB TO COLLECT [POC] QIDACANDBED 11/27/18 16:30 GLUCOSE POC LAB TO COLLECT [POC] QIDACANDBED 11/27/18 21:00 GLUCOSE POC LAB TO COLLECT [POC] QIDACANDBED 11/28/18 07:30 GLUCOSE POC LAB TO COLLECT [POC] QIDACANDBED 11/28/18 11:30 GLUCOSE POC LAB TO COLLECT [POC] QIDACANDBED 11/28/18 16:30 GLUCOSE POC LAB TO COLLECT [POC] QIDACANDBED 11/28/18 21:00 GLUCOSE POC LAB TO COLLECT [POC] QIDACANDBED 11/29/18 07:30 GLUCOSE POC LAB TO COLLECT [POC] QIDACANDBED 11/29/18 11:30 GLUCOSE POC LAB TO COLLECT [POC] QIDACANDBED 11/29/18 16:30 GLUCOSE POC LAB TO COLLECT [POC] QIDACANDBED 11/29/18 21:00 GLUCOSE POC LAB TO COLLECT [POC] QIDACANDBED 11/30/18 07:30 GLUCOSE POC LAB TO COLLECT [POC] QIDACANDBED 11/30/18 11:30 GLUCOSE POC LAB TO COLLECT [POC] QIDACANDBED 11/30/18 16:30 GLUCOSE POC LAB TO COLLECT [POC] QIDACANDBED 11/30/18 21:00 GLUCOSE POC LAB TO COLLECT [POC] QIDACANDBED 12/01/18 07:30 GLUCOSE POC LAB TO COLLECT [POC] QIDACANDBED 12/01/18 11:30 GLUCOSE POC LAB TO COLLECT [POC] QIDACANDBED 12/01/18 16:30 GLUCOSE POC LAB TO COLLECT [POC] QIDACANDBED 12/01/18 21:00 GLUCOSE POC LAB TO COLLECT [POC] QIDACANDBED 12/02/18 07:30 GLUCOSE POC LAB TO COLLECT [POC] QIDACANDBED 12/02/18 11:30 GLUCOSE POC LAB TO COLLECT [POC] QIDACANDBED 12/02/18 16:30 GLUCOSE POC LAB TO COLLECT [POC] QIDACANDBED 12/02/18 21:00 GLUCOSE POC LAB TO COLLECT [POC] QIDACANDBED 12/03/18 07:30 GLUCOSE POC LAB TO COLLECT [POC] QIDACANDBED 12/03/18 11:30 GLUCOSE POC LAB TO COLLECT [POC] QIDACANDBED 12/03/18 16:30 GLUCOSE POC LAB TO COLLECT [POC] QIDACANDBED 12/03/18 21:00 GLUCOSE POC LAB TO COLLECT [POC] QIDACANDBED 12/04/18 07:30 GLUCOSE POC LAB TO COLLECT [POC] QIDACANDBED 12/04/18 11:30 GLUCOSE POC LAB TO COLLECT [POC] QIDACANDBED 12/04/18 16:30 GLUCOSE POC LAB TO COLLECT [POC] QIDACANDBED 12/04/18 21:00 GLUCOSE POC LAB TO COLLECT [POC] QIDACANDBED 12/05/18 07:30 GLUCOSE POC LAB TO COLLECT [POC] QIDACANDBED 12/05/18 11:30 GLUCOSE POC LAB TO COLLECT [POC] QIDACANDBED 12/05/18 16:30 GLUCOSE POC LAB TO COLLECT [POC] QIDACANDBED 12/05/18 21:00 GLUCOSE POC LAB TO COLLECT [POC] QIDACANDBED 12/06/18 07:30 GLUCOSE POC LAB TO COLLECT [POC] QIDACANDBED 12/06/18 11:30 GLUCOSE POC LAB TO COLLECT [POC] QIDACANDBED 12/06/18 16:30 GLUCOSE POC LAB TO COLLECT [POC] QIDACANDBED 12/06/18 21:00 GLUCOSE POC LAB TO COLLECT [POC] QIDACANDBED 12/07/18 07:30 GLUCOSE POC LAB TO COLLECT [POC] QIDACANDBED 12/07/18 11:30 GLUCOSE POC LAB TO COLLECT [POC] QIDACANDBED 12/07/18 16:30 GLUCOSE POC LAB TO COLLECT [POC] QIDACANDBED 12/07/18 21:00 GLUCOSE POC LAB TO COLLECT [POC] QIDACANDBED 12/08/18 07:30 GLUCOSE POC LAB TO COLLECT [POC] QIDACANDBED 12/08/18 11:30 GLUCOSE POC LAB TO COLLECT [POC] QIDACANDBED 12/08/18 16:30 GLUCOSE POC LAB TO COLLECT [POC] QIDACANDBED 12/08/18 21:00 GLUCOSE POC LAB TO COLLECT [POC] QIDACANDBED 12/09/18 07:30 GLUCOSE POC LAB TO COLLECT [POC] QIDACANDBED 12/09/18 11:30 GLUCOSE POC LAB TO COLLECT [POC] QIDACANDBED 12/09/18 16:30 GLUCOSE POC LAB TO COLLECT [POC] QIDACANDBED 12/09/18 21:00 GLUCOSE POC LAB TO COLLECT [POC] QIDACANDBED 12/10/18 07:30 GLUCOSE POC LAB TO COLLECT [POC] QIDACANDBED 12/10/18 11:30 GLUCOSE POC LAB TO COLLECT [POC] QIDACANDBED 12/10/18 16:30 GLUCOSE POC LAB TO COLLECT [POC] QIDACANDBED 12/10/18 21:00 GLUCOSE POC LAB TO COLLECT [POC] QIDACANDBED 12/11/18 07:30 GLUCOSE POC LAB TO COLLECT [POC] QIDACANDBED 12/11/18 11:30 GLUCOSE POC LAB TO COLLECT [POC] QIDACANDBED 12/11/18 16:30 GLUCOSE POC LAB TO COLLECT [POC] QIDACANDBED 12/11/18 21:00 GLUCOSE POC LAB TO COLLECT [POC] QIDACANDBED 12/12/18 07:30 GLUCOSE POC LAB TO COLLECT [POC] QIDACANDBED 12/12/18 11:30 GLUCOSE POC LAB TO COLLECT [POC] QIDACANDBED 12/12/18 16:30 GLUCOSE POC LAB TO COLLECT [POC] QIDACANDBED 12/12/18 21:00 GLUCOSE POC LAB TO COLLECT [POC] QIDACANDBED 12/13/18 07:30 GLUCOSE POC LAB TO COLLECT [POC] QIDACANDBED 12/13/18 11:30 GLUCOSE POC LAB TO COLLECT [POC] QIDACANDBED 12/13/18 16:30 GLUCOSE POC LAB TO COLLECT [POC] QIDACANDBED 12/13/18 21:00 GLUCOSE POC LAB TO COLLECT [POC] QIDACANDBED 12/14/18 07:30 GLUCOSE POC LAB TO COLLECT [POC] QIDACANDBED 12/14/18 11:30 GLUCOSE POC LAB TO COLLECT [POC] QIDACANDBED 12/14/18 16:30 GLUCOSE POC LAB TO COLLECT [POC] QIDACANDBED 12/14/18 21:00 GLUCOSE POC LAB TO COLLECT [POC] QIDACANDBED 12/15/18 07:30 GLUCOSE POC LAB TO COLLECT [POC] QIDACANDBED - Plan Plan:: ASSESSMENT AND PLAN ATRIAL FIBRILLATION WITH RAPID VENTRICULAR RESPONSE-second documented episode which is been present now for a period of 5 days. Previous episode resolved spontaneously in less than 24 hours. He has experienced symptoms of weakness and lightheadedness. Feeling somewhat better today, heart rate controlled until earlier this morning, now elevated. Calculated [id number] score of 4. -Diltiazem 60 mg by mouth every 6 hours, plantar transition to long-acting diltiazem tomorrow -Increase Coreg to 25 mg twice daily -Initiate anticoagulation with Eliquis 5 mg by mouth twice daily -Outpatient follow-up with cardiology HYPERKALEMIA-resolved -Hold CARLOS inhibitor and Spironolactone -Recheck potassium level in a.m. ALCOHOLISM-he reports daily use of alcohol 16 ounces per day. He refuses gabapentin or alcohol dosing while in the hospital. He denies any symptoms of alcohol withdrawal thus far -Monitor closely for alcohol withdrawal CONGESTIVE HEART FAILURE-well compensated on current therapy -Continue current outpatient medications CORONARY ARTERY DISEASE-currently asymptomatic, denies any symptoms of chest pain. -Continue outpatient medications TYPE 2 DIABETES MELLITUS -Continue outpatient oral hypoglycemic therapy MAINTENANCE ISSUES -DVT prophylaxis; current therapy with Eliquis should provide adequate DVT prophylaxis -GI prophylaxis; not indicated -Camara catheter; not indicated -Nutrition; 2 g sodium diet -Nicotine dependence; not required CODE STATUS-FULL CODE ADMISSION STATUS-patient will be admitted to inpatient status, expect at least a 2 night hospital stay for evaluation and management of problems as outlined above. At the time of this admission I do not reasonably expected evaluation and management of this problem will require more than a 96 hour hospital stay. DISPOSITION-anticipate discharge to home after the hospital stay. PRIMARY CARE PROVIDER-
[2018-11-21] MEDS ORDERED: Digoxin 125 MCG Tab PO SCH ×2 (10:00→13:00)
[2018-11-21] MEDS ORDERED: Diltiazem IR 30 MG Tab PO ONE (12:35)
[2018-11-21] MEDS: Insulin Lispro 100 Unit/ML 3 ML KwikPen SUBCUT SCH ×3 (17:39→23:22)
[2018-11-21] MEDS ORDERED: Zolpidem 5 MG Tab PO PRN (19:40)
[2018-11-21] MEDS: Carvedilol 25 MG Tab PO SCH (21:11)
[2018-11-22] MEDS: Diltiazem IR 30 MG Tab PO SCH (04:04)
[2018-11-22] MEDS: Insulin Lispro 100 Unit/ML 3 ML KwikPen SUBCUT SCH (08:20)
[2018-11-22] MEDS ORDERED: Digoxin 125 MCG Tab PO SCH (09:00)
[2018-11-22] MEDS ORDERED: Diltiazem 180 MG Cap.CD PO SCH (09:00)
[2018-11-22] MEDS: Glimepiride 2 MG Tab PO SCH (09:14)
[2018-11-22] MEDS: Carvedilol 25 MG Tab PO SCH (09:15)
[2018-11-22] MEDS: Apixaban 5 MG Tab PO SCH (09:16)
[2018-11-22] MEDS: Aspirin 81 MG Tab.EC PO SCH (09:16)
[2018-11-22] MEDS: Pravastatin 20 MG Tab PO SCH (09:17)
--- NOTE | 2018-11-22 09:26 | PCM.DCSUM1 ---
Discharge Summary - Hospital Course Brief History: Mr. Mccann is a 63-year-old gentleman who was admitted through the emergency department with weakness and lightheadedness secondary to atrial fibrillation with rapid ventricular response. - Discharge Data Discharge Date: 11/22/18 Discharge Disposition: Home, Self-Care 01 Condition: Fair - Discharge Diagnosis/Problem(s) (1) Atrial fibrillation with RVR SNOMED Code(s): 080194574828455 ICD Code: I48.91 - UNSPECIFIED ATRIAL FIBRILLATION Status: Acute Current Visit: Yes Problem Details: Hypotension with initial HR 146, BP improved with rate control (2) Diabetes SNOMED Code(s): 01267464 ICD Code: E11.9 - TYPE 2 DIABETES MELLITUS WITHOUT COMPLICATIONS Status: Acute Priority: Medium Current Visit: Yes Qualifiers: Diabetes mellitus type: type 2 Diabetes mellitus retirement insulin use: without retirement use Diabetes mellitus complication status: with other specified complication Qualified Code(s): E11.69 - Type 2 diabetes mellitus with other specified complication (3) Alcohol dependence, daily use SNOMED Code(s): 032593636 ICD Code: F10.20 - ALCOHOL DEPENDENCE, UNCOMPLICATED Status: Acute Current Visit: Yes - Patient Summary/Data Hospital Course: Mr. Mccann is a 63-year-old gentleman who was admitted through the emergency department with weakness and lightheadedness secondary to atrial fibrillation with rapid ventricular response. Symptoms began approximately 4 days prior to admission and during that period of time he had noted persistent weakness and lightheadedness. He is had one previous documented episode of atrial fibrillation which was transient and converted spontaneously. He does have a known history of congestive heart failure as well as coronary artery disease and is status post placement of a defibrillator. He denies any current symptoms of chest pain or pressure or significant shortness of breath. Evaluation in the emergency department has included cardiac monitoring as well as an EKG that showed evidence of atrial fibrillation with rapid ventricular response. He was given a bolus dose of diltiazem and started on a continuous infusion of diltiazem with good result and heart rate currently in the 70s, does remain in atrial fibrillation. On admission IV diltiazem was continued. Later in the day he was transitioned to oral diltiazem, the initial dose of 30 mg every 6 hours was insufficient to maintain his heart rate at less than 100. He was continued on the oral digoxin, level was obtained and found to be within desired range. TSH was also found to be within normal range. Echocardiogram was not obtained as it was not available during the time of his hospitalization. Dose of diltiazem was increased to 60 mg every 6 hours and his dose of Coreg was increased to 25 mg twice daily. With this regimen heart rate came under good control, with borderline low blood pressure. At the time of discharge she will be continued on the digoxin, dose of diltiazem will be 180 mg daily and his dose of Coreg will be 25 mg twice daily. On admission he was found to have significant hyperkalemia with potassium of 6. He received 1 dose of Kayexalate with good result and his potassium level was within normal range at the time of discharge. Spironolactone will be discontinued because of the hyperkalemia. Activity will be as tolerated and he will resume his usual diet. Follow-up appointment will be scheduled with his primary care provider within one week. 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 - Patient Instructions Diet: Diabetic Diet Activity: As Tolerated Other/Special Instructions: Please schedule follow-up appointment with primary care provider within one week. 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 - Discharge Plan *PRESCRIPTION DRUG MONITORING PROGRAM REVIEWED*: Not Applicable *COPY OF PRESCRIPTION DRUG MONITORING REPORT IN PATIENT CHULA: Not Applicable Prescriptions/Med Rec: Apixaban [Eliquis] 5 mg PO BID #60 tablet Carvedilol [Coreg] 25 mg PO BID #60 tablet Diltiazem HCl [Diltiazem 24Hr Cd] 180 mg PO DAILY #30 cap.er.24h Home Medications: Home Meds Aspirin [Halfprin] 81 mg PO DAILY 11/20/18 [History] Digoxin 125 mcg PO DAILY 11/20/18 [History] Eszopiclone [Lunesta] 3 mg PO DAILY 11/20/18 [History] Glimepiride 4 mg PO DAILY 11/20/18 [History] Lisinopril 10 mg PO DAILY 11/20/18 [History] Multivitamin with Minerals [Multiple Vitamin] 1 tab PO DAILY 11/20/18 [History] Pravastatin Sodium 10 mg PO DAILY 11/20/18 [History] Apixaban [Eliquis] 5 mg PO BID #60 tablet 11/22/18 [Rx] Carvedilol [Coreg] 25 mg PO BID #60 tablet 11/22/18 [Rx] Diltiazem HCl [Diltiazem 24Hr Cd] 180 mg PO DAILY #30 cap.er.24h 11/22/18 [Rx] Referrals: Brooke Johnson MD [Ordering Only Provider] - - Discharge Summary/Plan Comment DC Time >30 min.: No - Patient Data Vitals - Most Recent: Last Vital Signs Temp 97.6 F 11/22/18 08:00 Pulse 92 11/22/18 09:16 Resp 12 11/22/18 08:00 BP 100/70 11/22/18 09:15 Pulse Ox 98 11/22/18 08:00 Weight - Most Recent: 251 lb 5.231 oz I&O - Last 24 hours: Intake & Output 11/21/18 11/22/18 11/22/18 22:59 06:59 14:59 Intake Total 600 300 Output Total 700 375 Balance -100 -75 Lab Results - Last 24 hrs: Laboratory Results - last 24 hr 11/22/18 Range/Units 05:08 Sodium 140 (140-148) mmol/L Potassium 3.9 (3.6-5.2) mmol/L Chloride 104 (100-108) mmol/L Carbon Dioxide 27 (21-32) mmol/L Anion Gap 8.8 (5.0-14.0) mmol/L BUN 20 H (7-18) mg/dL Creatinine 1.2 (0.8-1.3) mg/dL Est Cr Clr Drug Dosing 69.25 mL/min Estimated GFR (MDRD) > 60 (>60) Glucose 172 H (74-106) mg/dL Calcium 8.8 (8.5-10.1) mg/dL Med Orders - Current: Current Medications Acetaminophen (Tylenol) 650 mg PO Q4H PRN PRN Reason: Pain (Mild 1-3)/fever Albuterol (Proventil Neb Soln) 2.5 mg NEB Q4H PRN PRN Reason: Shortness Of Breath/wheezing Apixaban (Eliquis) 5 mg PO BID [facility] Last Admin: 11/22/18 09:16 Dose: 5 mg Aspirin (Halfprin) 81 mg PO DAILY [facility] Last Admin: 07/14/19 09:16 Dose: 81 mg Carvedilol (Coreg) 25 mg PO BID [facility] Last Admin: 11/22/18 09:15 Dose: 25 mg Dextrose (Glutose 15) 15 gm PO ASDIRECTED PRN PRN Reason: Hypoglycemia Dextrose/Water (Dextrose 50% In Water) 50 ml IV ASDIRECTED PRN PRN Reason: Hypoglycemia Digoxin (Lanoxin) 125 mcg PO DAILY [facility] Last Admin: 11/22/18 09:16 Dose: 125 mcg Diltiazem HCl (Cardizem Cd) 180 mg PO DAILY [facility] Last Admin: 11/22/18 09:15 Dose: 180 mg Glimepiride (Amaryl) 4 mg PO DAILY [facility] Last Admin: 11/22/18 09:14 Dose: 4 mg Insulin Human Lispro (Humalog) 0 unit SUBCUT QIDACANDBED [facility]; Protocol Last Admin: 11/22/18 08:20 Dose: Not Given Ondansetron HCl (Zofran) 4 mg IV Q4H PRN PRN Reason: Nausea/Vomiting Polyethylene Glycol (Miralax) 17 gm PO DAILY PRN PRN Reason: Constipation Pravastatin Sodium (Pravachol) 10 mg PO DAILY [facility] Last Admin: 11/22/18 09:17 Dose: 10 mg Sodium Chloride (Saline Flush) 10 ml FLUSH ASDIRECTED PRN PRN Reason: Keep Vein Open Zolpidem Tartrate (Ambien) 5 mg PO BEDTIME PRN PRN Reason: Sleep Last Admin: 11/21/18 23:04 Dose: 5 mg Discontinued Medications Carvedilol (Coreg) 25 mg PO DAILY [facility] Last Admin: 11/21/18 08:16 Dose: 25 mg Digoxin (Lanoxin) 125 mcg PO DAILY@1300 [facility] Last Admin: 11/21/18 09:09 Dose: 125 mcg Diltiazem HCl (Diltiazem) 20 mg IVPUSH ONETIME ONE Stop: 11/20/18 11:44 Last Admin: 11/20/18 11:56 Dose: 20 mg Diltiazem HCl (Cardizem) 30 mg PO Q6HR [facility] Last Admin: 11/21/18 09:10 Dose: Not Given Diltiazem HCl (Cardizem) 60 mg PO Q6HR [facility] Last Admin: 11/22/18 04:04 Dose: 60 mg Diltiazem HCl (Cardizem) 30 mg PO ONETIME ONE Stop: 11/21/18 12:36 Last Admin: 11/21/18 13:27 Dose: Not Given Diltiazem HCl 125 mg/ Sodium (Chloride) 125 mls @ 5 mls/hr IV TITRATE [facility]; Protocol Last Titration: 11/20/18 23:01 Dose: 0 mg/hr, 0 mls/hr Sodium Chloride (Normal Saline) 1,000 mls @ 500 mls/hr IV ASDIRECTED SAM Last Admin: 11/20/18 11:55 Dose: 500 mls/hr Eszopiclone 3mg Tab (Own Med) 0 each PO ONETIME ONE Stop: 11/20/18 21:30 Last Admin: 11/20/18 23:00 Dose: 1 each Sodium Chloride (Saline Flush) 10 ml FLUSH ASDIRECTED PRN PRN Reason: Keep Vein Open Last Admin: 11/20/18 12:49 Dose: 10 ml Sodium Polystyrene Sulfonate (Kayexalate) 30 gm PO ONETIME ONE Stop: 11/20/18 16:31 Last Admin: 11/20/18 17:02 Dose: 30 gm Temazepam (Restoril) 15 mg PO BEDTIME PRN PRN Reason: Insomnia Zolpidem Tartrate (Ambien) 5 mg PO BEDTIME SAM Last Admin: 11/20/18 21:48 Dose: Not Given - Exam Quality Assessment: Reports: DVT Prophylaxis General: Reports: Alert, Oriented, Cooperative, No Acute Distress Lungs: Reports: Clear to Auscultation, Normal Respiratory Effort Cardiovascular: Reports: Regular Rate, No Murmurs, Irregular Rhythm GI/Abdominal Exam: Soft, Non-Tender, No Organomegaly, No Distention Extremities: Non-Tender, No Pedal Edema *Q Meaningful Use (DIS) - VTE *Q VTE Pharmacological Contraindications *Q: High INR Value
== END 2018-11-22 09:45 | disposition home or self-care (01) | DRG 201 ==
LOC: JP.ED 11:26 → JP.ICU 14:20
PROVIDERS: ADMIT Hospitalist; ATTEND Hospitalist
DX: I48.91 Unspecified atrial fibrillation (principal); I11.0 Hypertensive heart disease with heart failure; I50.9 Heart failure, unspecified; E11.9 Type 2 diabetes mellitus without complications; F10.20 Alcohol dependence, uncomplicated; I25.2 Old myocardial infarction; I25.10 Atherosclerotic heart disease of native coronary artery without angina pectoris; E78.00 Pure hypercholesterolemia, unspecified; Z87.891 Personal history of nicotine dependence; E87.5 Hyperkalemia; I95.9 Hypotension, unspecified; I42.9 Cardiomyopathy, unspecified; H54.7 Unspecified visual loss; M19.90 Unspecified osteoarthritis, unspecified site; M10.9 Gout, unspecified; Z86.73 Personal history of transient ischemic attack (TIA), and cerebral infarction without residual deficits; F41.9 Anxiety disorder, unspecified; Z95.1 Presence of aortocoronary bypass graft; Z95.5 Presence of coronary angioplasty implant and graft; Z79.82 Long term (current) use of aspirin; Z95.810 Presence of automatic (implantable) cardiac defibrillator; Y90.0 Blood alcohol level of less than 20 mg/100 ml
CPT/HCPCS: 36415; 80048; 80053; 80162; 82962; 83880; 84132; 84443; 84484; 85025; 85610; 96361; 96374; 96376; 99284-25; A9270-GY; G0480; J1815; J3490; J7030

== ENCOUNTER 2018-12-13 08:53 | Emergency (ER) | payer BC ==
[2018-12-13] MEDS ORDERED: Ondansetron 4 MG/2 ML SDV IVPUSH ONE (09:00)
[2018-12-13] MEDS ORDERED: HYDROmorphone 1 MG/ML Syringe IVPUSH ONE (09:01)
[2018-12-13] MEDS ORDERED: Acetaminophen/oxyCODONE 325-5 MG Tab PO ONE (10:59)
[2018-12-13] MEDS ORDERED: Colchicine 0.6 MG Tab PO ONE (11:41)
--- NOTE | 2018-12-13 11:52 | EDM.PDOC ---
ED HPI GENERAL MEDICAL PROBLEM - General Chief Complaint: Lower Extremity Injury/Pain Stated Complaint: GOUT IN LEFT FOOT Time Seen by Provider: 12/13/18 11:52 Source of Information: Reports: Patient History Limitations: Reports: No Limitations - History of Present Illness INITIAL COMMENTS - FREE TEXT/NARRATIVE: pt arrived with severe pain in his left foot. It is not in the great toe as usual but in the middle of the foot. It is very tender. It feels like his gout usually feels. This started yesterday. [employer] usually works. Onset: Other ( yesterday. ) Duration: Hour(s): Location: Reports: Lower Extremity, Right Associated Symptoms: Reports: No Other Symptoms - Related Data Allergies Allergy/AdvReac Type Severity Reaction Status Date / Time No Known Allergies Allergy Verified 12/13/18 09:42 Home Meds: Home Meds Aspirin [Halfprin] 81 mg PO DAILY 11/20/18 [History] Digoxin 125 mcg PO DAILY 11/20/18 [History] Eszopiclone [Lunesta] 3 mg PO DAILY 11/20/18 [History] Glimepiride 4 mg PO DAILY 11/20/18 [History] Lisinopril 10 mg PO DAILY 11/20/18 [History] Multivitamin with Minerals [Multiple Vitamin] 1 tab PO DAILY 11/20/18 [History] Pravastatin Sodium 10 mg PO DAILY 11/20/18 [History] Apixaban [Eliquis] 5 mg PO BID #60 tablet 11/22/18 [Rx] Carvedilol [Coreg] 25 mg PO BID #60 tablet 11/22/18 [Rx] Diltiazem HCl [Diltiazem 24Hr Cd] 180 mg PO DAILY #30 cap.er.24h 11/22/18 [Rx] Past Medical History HEENT History: Reports: Impaired Vision Cardiovascular History: Reports: Automatic Implantable Cardioverter Defibrillators, Cardiomyopathy, High Cholesterol, Hypertension, [place], Other (See Below) Other Cardiovascular History: Musculoskeletal History: Reports: Arthritis, Gout Neurological History: Reports: Concussion, TIA Psychiatric History: Reports: Addiction, Anxiety Endocrine/Metabolic History: Reports: Diabetes, Type II Hematologic History: Reports: Blood Transfusion(s) - Past Surgical History Head Surgeries/Procedures: Reports: None HEENT Surgical History: Reports: Laser Surgery Cardiovascular Surgical History: Reports: Coronary Artery Bypass, Coronary Artery Stent Endocrine Surgical History: Reports: None Neurological Surgical History: Reports: None Musculoskeletal Surgical History: Reports: Other (See Below) Other Musculoskeletal Surgeries/Procedures:: finger Dermatological Surgical History: Reports: None Social & Family History - Tobacco Use Smoking Status *Q: Never Smoker - Caffeine Use Caffeine Use: Reports: Coffee Review of Systems - Review of Systems Review Of Systems: See Below Constitutional: Reports: No Symptoms Eyes: Reports: No Symptoms Ears: Reports: No Symptoms Nose: Reports: No Symptoms Mouth/Throat: Reports: No Symptoms Respiratory: Reports: No Symptoms Cardiovascular: Reports: No Symptoms GI/Abdominal: Reports: No Symptoms Genitourinary: Reports: No Symptoms Musculoskeletal: Reports: Other ( severe pain in his left foot. ) ED EXAM, GENERAL - Physical Exam Exam: See Below Free Text/Narrative:: pt arrived with pain in the left foot. He stated this started yesterday and has gotten worse. Exam Limited By: No Limitations General Appearance: Alert, Anxious, Severe Distress Ears: Normal TMs Nose: Normal Inspection Throat/Mouth: Normal Inspection Head: Atraumatic Neck: Normal Inspection Respiratory/Chest: No Respiratory Distress Cardiovascular: Regular Rate, Rhythm GI/Abdominal: Soft, Non-Tender (Male) Exam: Deferred Rectal (Males) Exam: Deferred Extremities: Other ( Left foot is tender topalpate. His pulse is diminished but adequate. He is mainly tender in the midportion of the foot. s) Neurological: Normal Cognition Course - Vital Signs Last Recorded V/S: Last Vital Signs Temp 35.6 C 12/13/18 09:48 Pulse 75 12/13/18 09:48 Resp 16 12/13/18 09:48 BP 97/57 L 12/13/18 09:48 Pulse Ox 97 12/13/18 09:48 - Orders/Labs/Meds Labs: Laboratory Tests 12/13/18 12/13/18 12/13/18 Range/Units 11:24 11:24 11:24 WBC 9.9 (4.5-11.0) K/uL RBC 3.88 L (4.30-5.90) M/uL Hgb 12.3 D (12.0-15.0) g/dL Hct 37.6 L (40.0-54.0) % MCV 97 (80-98) fL MCH 32 H (27-31) pg MCHC 33 (32-36) % Plt Count 192 (150-400) K/uL Neut % (Auto) 69 H (36-66) % Lymph % (Auto) 16 L (24-44) % King % (Auto) 9 H (2-6) % Eos % (Auto) 4 (2-4) % Baso % (Auto) 1 (0-1) % Sodium 139 L (140-148) mmol/L Potassium 4.3 (3.6-5.2) mmol/L Chloride 102 (100-108) mmol/L Carbon Dioxide 32 (21-32) mmol/L Anion Gap 9.3 (5.0-14.0) mmol/L BUN 17 (7-18) mg/dL Creatinine 1.2 (0.8-1.3) mg/dL Est Cr Clr Drug Dosing 69.16 mL/min Estimated GFR (MDRD) > 60 (>60) Glucose 301 H (74-106) mg/dL Uric Acid 8.2 H (3.5-7.2) mg/dL Calcium 9.4 (8.5-10.1) mg/dL Total Bilirubin 0.7 (0.2-1.0) mg/dL AST 12 L (15-37) U/L ALT 29 (12-78) U/L Alkaline Phosphatase 70 (46-116) U/L Total Protein 6.8 (6.4-8.2) g/dL Albumin 3.3 L (3.4-5.0) g/dL Globulin 3.5 (2.3-3.5) g/dL Albumin/Globulin Ratio 0.9 L (1.2-2.2) Meds: Medications Discontinued Medications Generic Name Dose Route Start Last Admin Trade Name Freq PRN Reason Stop Dose Admin Colchicine 0.6 mg 12/13/18 11:41 Colcrys PO 12/13/18 11:42 ONETIME ONE Hydromorphone HCl 1 mg 12/13/18 09:01 Dilaudid IVPUSH 12/13/18 09:02 ONETIME ONE Ondansetron HCl 4 mg 12/13/18 09:00 Zofran IVPUSH 12/13/18 09:01 ONETIME ONE Oxycodone/Acetaminophen 1 tab 12/13/18 10:59 12/13/18 11:29 Percocet 325-5 Mg PO 12/13/18 11:00 1 tab ONETIME ONE Administration - Re-Assessments/Exams Free Text/Narrative Re-Assessment/Exam: 12/13/18 11:58 glucose is greater than 300. he had a uric acid or 8.8. Departure - Departure Time of Disposition: 11:47 Disposition: Home, Self-Care 01 Condition: Fair Clinical Impression: Gout, Hyperglycemia - Discharge Information Referrals: Brooke Johnson MD [Primary Care Provider] - Forms: ED Department Discharge Care Plan Goals: cool pack to feet, colchine .6 -- 4tabs today and 3-3 tabs tomorrow, check bs closely over the next 2 days watching diet closely. norco 5/325 q6h prn for pain #5
== END 2018-12-13 12:26 | disposition home or self-care (01) ==
LOC: JP.ED 08:53
DX: E11.65 Type 2 diabetes mellitus with hyperglycemia (principal); M10.9 Gout, unspecified; I10 Essential (primary) hypertension; I25.2 Old myocardial infarction; Z79.82 Long term (current) use of aspirin; Z79.899 Other long term (current) drug therapy
CPT/HCPCS: 36415; 80053; 84550; 85025; 96374; 96375; 99283; A9270